=== PATIENT | male | born 1990 | race Caucasian/White ===

== ENCOUNTER 2018-12-02 12:29 | Emergency (ER) | payer BC, SELFPAY ==
[2018-12-02 12:30] VITALS: BP 120/70; PULSE 62; RESP 18; TEMP 36.5; O2SAT 97; BMI 27.3
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
[2018-12-02 16:20] VITALS: BP 113/76; PULSE 54; RESP 17; O2SAT 100
[2018-12-02 16:21] VITALS: RESP 18
--- NOTE | 2018-12-02 16:21 | ED.RN ---
DISCHARGE INSTRUCTIONS GIVEN TO AND REVIEWED WITH PATIENT, PATIENT DENIES QUESTIONS OR CONCERNS AND VOICES UNDERSTANDING OF DISCHARGE INSTRUCTIONS. PT AMBULATES OUT OF ROOM WITHOUT DIFFICULTY.
== END 2018-12-02 16:22 | disposition home or self-care (01) ==
PROVIDERS: Emergency Provider Emergency Medicine
DX: L02.415 Cutaneous abscess of right lower limb (principal)
CPT/HCPCS: 10060; 99282